=== PATIENT | male | born 1990 | race African-American/Black ===

== ENCOUNTER 2016-12-27 11:19 | Emergency (ER) | payer SELFPAY ==
[~2016-12-27] VITALS: Ht 188 cm; Wt 84.1 kg
[2016-12-27 13:27] VITALS: BP 110/74
== END 2016-12-27 13:29 | disposition home or self-care (01) ==
LOC: EME 11:19
PROC: 0RSKXZZ Reposition Left Shoulder Joint, External Approach (ICD-10-PCS; principal; 2016-12-27)
DX: S43.035A Inferior dislocation of left humerus, initial encounter (principal); S42.292A Other displaced fracture of upper end of left humerus, initial encounter for closed fracture; W18.39XA Other fall on same level, initial encounter; Y93.62 Activity, american flag or touch football; F17.200 Nicotine dependence, unspecified, uncomplicated
CPT/HCPCS: 73020; 73030; 99281; 99285; J2270